=== PATIENT | male | born 1945 | race Caucasian/White ===

== ENCOUNTER 2019-07-09 13:46 | Observation (INO) ==
[~2019-07-09 13:46] MED LIST: Total Joint Mixture (50 ml) IR ONE
[2019-07-09] MEDS ORDERED: CeFAZolin Syr 2,000MG/20 ML 2,000 MG/20 ML SYRINGE IVPB ONE (14:01)
[2019-07-09] MEDS ORDERED: Albuterol 2.5 MG/3 ML NEBULIZER IH PRN (14:01)
[2019-07-09] MEDS ORDERED: Acetaminophen IV 1,000 MG/100 ML INFUS..BTL IVPB ONE (14:14)
[2019-07-09] MEDS ORDERED: Ringers Solution, Lactated 1,000 ML IVC SCH ×2 (14:15→19:35)
[2019-07-09] MEDS ORDERED: *HR* FentaNYL (PF) 100 MCG/2 ML VIAL ONE (15:45)
[2019-07-09] MEDS ORDERED: *HR* Midazolam HCl 2 MG/2 ML VIAL ONE (15:45)
[2019-07-09] MEDS ORDERED: Propofol 500 MG/50 ML INFUS..BTL ONE (15:47)
[2019-07-09] MEDS ORDERED: Lidocaine -MPF 2% 2 ML VIAL ONE (15:49)
[2019-07-09] MEDS ORDERED: Ropivacaine/PF 0.5% 30 ML VIAL ONE (15:49)
[2019-07-09] MEDS ORDERED: Ethanol\\Acetic Acid\\Na Ace\\Ben 1,000 ML IRRIG.SOLN IR ONE (16:38)
[2019-07-09] MEDS ORDERED: Tranexamic Acid 1,000 MG/10 ML VIAL ONE (16:54)
[2019-07-09] MEDS ORDERED: Ondansetron 4 MG/2 ML VIAL IVP ONE (18:48)
[2019-07-09 18:56] LABS: Hematocrit 38.4 % (37.5-50.1); Hemoglobin 12.9 g/dL (12.9-16.9)
[2019-07-09] MEDS ORDERED: Ondansetron 4 MG/2 ML VIAL IVP PRN (19:35)
[2019-07-09] MEDS ORDERED: *HR* OxyCODONE Immed Rel 5 MG TABLET PO PRN (19:35)
[2019-07-09] MEDS ORDERED: traMADol 50 MG TABLET PO PRN (19:35)
[2019-07-09] MEDS ORDERED: D5% in Water 1,000 ML IVC PRN (19:35)
[2019-07-09] MEDS ORDERED: *HR* Meperidine 25 MG/ML SYRINGE IVP PRN (19:35)
[2019-07-09] MEDS ORDERED: *HR* Dextrose 50 % in Water (Syg) 50 ML SYRINGE IVP PRN (19:35)
[2019-07-09] MEDS ORDERED: Dextrose Gel 15 GM/37.5 ML TUBE PO PRN ×2 (19:35)
[2019-07-09] MEDS ORDERED: *HR* Promethazine 25 MG/ML VIAL IVP PRN ×2 (19:35)
[2019-07-09] MEDS ORDERED: Sennosides 8.6 MG TABLET PO PRN (19:35)
[2019-07-09] MEDS ORDERED: MOM Conc 10 ML UD.LIQ PO PRN (19:35)
[2019-07-09] MEDS ORDERED: Naloxone 0.4 MG/ML INJ IVP PRN (19:35)
[2019-07-09] MEDS: Pregabalin 50 MG CAPSULE PO SCH (19:54)
[2019-07-09] MEDS: *HR* OxyCODONE Immed Rel 5 MG TABLET PO PRN (19:54)
[2019-07-09] MEDS ORDERED: Acetaminophen IV 1,000 MG/100 ML INFUS..BTL IVPB PRN (20:54)
[2019-07-09] MEDS: HYDROcodone BIT/Homatropine 5 MG TABLET PO PRN (21:09)
[2019-07-09] MEDS: Insulin LISPRO 300 UNITS/3 ML VIAL SQ SCH ×2 (21:10→21:11)
[2019-07-09] MEDS: Ascorbic Acid 500 MG TABLET PO SCH (21:10)
[2019-07-09] MEDS: Ketorolac 30 MG/ML VIAL IVP PRN (21:12)
[2019-07-09] MEDS: Primidone 50 MG TABLET PO SCH (21:13)
[2019-07-09] MEDS: Temazepam 15 MG CAPSULE PO PRN (21:16)
[2019-07-09] MEDS: Acetaminophen IV 1,000 MG/100 ML INFUS..BTL IVPB PRN (21:25)
[2019-07-09] MEDS: GlipiZIDE 5 MG TABLET PO SCH (21:37)
[2019-07-09] MEDS: Budesonide/Formoterol 80/4.5 1 PUFF INH IH SCH (22:12)
[2019-07-10] MEDS: *HR* OxyCODONE Immed Rel 5 MG TABLET PO PRN ×4 (00:06→18:39)
[2019-07-10] MEDS: HYDROcodone BIT/Homatropine 5 MG TABLET PO PRN ×4 (01:57→21:29)
[2019-07-10] MEDS: Ketorolac 30 MG/ML VIAL IVP PRN (03:16)
[2019-07-10] MEDS: Acetaminophen IV 1,000 MG/100 ML INFUS..BTL IVPB PRN (04:31)
[2019-07-10 05:47] LABS: Basophils % 0.3 %; Eosinophils % 0.1 %; Hematocrit 34.8 % (37.5-50.1); Hemoglobin 12.2 g/dL (12.9-16.9); Immature Granulocytes % 1.3 % (0-4); Lymphocytes % 7.7 %; Mean Corpuscular HGB Conc 35.1 g/dL (31.6-35.5); Mean Corpuscular Hemoglobin 32.1 pg (28.0-33.3); Mean Corpuscular Volume 91.6 fL (83.0-100.0); Mean Platelet Volume 11.2 fL (9.4-12.4); Monocytes # 0.9 K/mcL (0.0-1.3); Neutrophils # 10.5 K/mcL (1.6-8.9); Platelet Count 192 K/mcL (140-400); Red Cell Distribution Width 14.6 % (11.5-14.5); Segmented Neutrophils % 83.6 %; White Blood Count 12.6 K/mcL (4.3-11.1)
[2019-07-10 06:06] LABS: BUN/Creatinine Ratio 23 (6-26); Blood Urea Nitrogen 25 mg/dL (8-23); Calcium 8.6 mg/dL (8.6-10.3); Carbon Dioxide 22 mEq/L (23-29); Chloride 104 mEq/L (98-107); Glucose 198 mg/dL (70-105); Osmolality,Calculated 294 (280-300); Potassium 4.1 mEq/L (3.5-5.1); Sodium 137 mEq/L (136-145); eGFR For African Americans > 60 (> 60); eGFR For Non-African Americans > 60 (> 60)
[2019-07-10] MEDS: *HR* Enoxaparin 30 MG/0.3 ML SYRINGE SQ SCH ×2 (06:07→17:51)
[2019-07-10] MEDS: Levothyroxine 25 MCG TABLET PO SCH (06:07)
[2019-07-10] MEDS: Budesonide/Formoterol 80/4.5 1 PUFF INH IH SCH ×2 (07:56→19:55)
[2019-07-10] MEDS ORDERED: amLODIPine 5 MG TABLET PO SCH (09:00)
[2019-07-10] MEDS ORDERED: NON-FORMULARY MEDICATION 1 EACH EACH (Fluticasone/Vilanterol [Breo Ellipta 100-25 Mcg Inh] IH SCH (09:00)
[2019-07-10] MEDS ORDERED: Cholecalciferol (D-3) 1,000 UNIT (25MCG) TABLET PO SCH (09:00)
[2019-07-10] MEDS ORDERED: Aspirin Enteric Coated 81 MG Tablet PO SCH (09:00)
[2019-07-10] MEDS ORDERED: Losartan/HCTZ 50-12.5 TABLET PO SCH (09:00)
[2019-07-10] MEDS ORDERED: *HR* Pioglitazone 15 MG TABLET PO SCH (09:00)
[2019-07-10] MEDS ORDERED: Multivit/Ca/Min/Fe/FA 1 TAB TABLET PO SCH (09:00)
[2019-07-10] MEDS: Ascorbic Acid 500 MG TABLET PO SCH ×2 (09:37→17:50)
[2019-07-10] MEDS: GlipiZIDE 5 MG TABLET PO SCH ×2 (09:37→20:28)
[2019-07-10] MEDS: Pregabalin 50 MG CAPSULE PO SCH ×2 (09:38→20:28)
[2019-07-10] MEDS: Insulin LISPRO 300 UNITS/3 ML VIAL SQ SCH ×4 (12:54→20:44)
[2019-07-10] MEDS ORDERED: tiZANidine 4 MG TABLET PO PRN (17:12)
[2019-07-10] MEDS: Primidone 50 MG TABLET PO SCH (20:28)
[2019-07-10] MEDS: Temazepam 15 MG CAPSULE PO PRN (21:29)
[2019-07-11] MEDS: *HR* OxyCODONE Immed Rel 5 MG TABLET PO PRN (03:25)
[2019-07-11] MEDS: Levothyroxine 25 MCG TABLET PO SCH (05:08)
[2019-07-11] MEDS: HYDROcodone BIT/Homatropine 5 MG TABLET PO PRN (05:08)
[2019-07-11] MEDS: *HR* Enoxaparin 30 MG/0.3 ML SYRINGE SQ SCH (05:08)
[2019-07-11 05:59] LABS: Basophils # 0.1 K/mcL (0.0-0.2); Basophils % 0.6 %; Eosinophils # 0.2 K/mcL (0.0-0.6); Eosinophils % 1.6 %; Hematocrit 32.4 % (37.5-50.1); Hemoglobin 11.3 g/dL (12.9-16.9); Immature Granulocytes % 1.5 % (0-4); Lymphocytes % 20.7 %; Mean Corpuscular HGB Conc 34.9 g/dL (31.6-35.5); Mean Corpuscular Hemoglobin 32.2 pg (28.0-33.3); Mean Corpuscular Volume 92.3 fL (83.0-100.0); Mean Platelet Volume 11.7 fL (9.4-12.4); Monocytes # 1.2 K/mcL (0.0-1.3); Monocytes % 11.8 %; Neutrophils # 6.3 K/mcL (1.6-8.9); Platelet Count 170 K/mcL (140-400); Red Blood Count 3.51 M/mcL (4.19-5.50); Red Cell Distribution Width 14.7 % (11.5-14.5); Segmented Neutrophils % 63.8 %; White Blood Count 9.9 K/mcL (4.3-11.1)
[2019-07-11 06:18] LABS: BUN/Creatinine Ratio 22 (6-26); Blood Urea Nitrogen 27 mg/dL (8-23); Calcium 8.7 mg/dL (8.6-10.3); Carbon Dioxide 24 mEq/L (23-29); Chloride 104 mEq/L (98-107); Glucose 133 mg/dL (70-105); Osmolality,Calculated 291 (280-300); Potassium 3.6 mEq/L (3.5-5.1); Sodium 137 mEq/L (136-145); eGFR For African Americans > 60 (> 60); eGFR For Non-African Americans 58 (> 60)
[2019-07-11] MEDS: Budesonide/Formoterol 80/4.5 1 PUFF INH IH SCH ×2 (07:21→19:35)
[2019-07-11 07:30] VITALS: BP 118/65
== END 2019-07-11 14:10 | disposition home health service (06) ==
LOC: 3NENU 13:46 → SAMDAY 13:46 → 3NENU 19:36
PROVIDERS: ADMIT Orthopaedic Surgery; ATTEND Orthopaedic Surgery